=== PATIENT | male | born 1970 | race Caucasian/White ===

== ENCOUNTER → 2017-03-20 | Outpatient (CLI) | payer MEDICARE ==
--- NOTE | 2017-03-20 13:52 | Diagnostic Imaging Report ---
3 views of the left shoulder. INDICATION: Left shoulder pain. FINDINGS: Acromioclavicular joint osteoarthritic sclerotic changes with subchondral cysts are seen. The glenohumeral joint demonstrates mild subchondral sclerosis as well. No significant inferior osteophytes seen. No significant subluxation or dislocation is seen. No radiopaque foreign body. IMPRESSION: Acromioclavicular joint osteoarthritis. Dictated by: Dictated on workstation # [id number]
== END ==
LOC: RAD 10:55
PROVIDERS: ATTEND Chiropractor Sports Physician
DX: M25.512 Pain in left shoulder (principal); R29.898 Other symptoms and signs involving the musculoskeletal system; M19.012 Primary osteoarthritis, left shoulder
CPT/HCPCS: 73030